=== PATIENT | male | born 1995 | race African-American/Black ===

== ENCOUNTER 2024-07-28 21:31 | Emergency (ER) | payer SELFPAY ==
[2024-07-28] MEDS ORDERED: Sodium Chloride 0.9% 1,000 ML IV SCH (23:45)
[2024-07-29] MEDS: Iopamidol 612 MG/ML 100 ML Bottle IVPUSH ONE (00:20)
[2024-07-29] MEDS: Dexamethasone 4 MG/ML SDV IVPUSH ONE (01:06)
== END 2024-07-29 01:14 | disposition home or self-care (01) ==
LOC: JD.ED 21:31
DX: R09.89 Other specified symptoms and signs involving the circulatory and respiratory systems (principal)
CPT/HCPCS: 70491; 82947; 96374; 99284; J1100; Q9967; 99283

== ENCOUNTER 2025-07-02 08:49 | Emergency (ER) | payer SELFPAY | END 2025-07-02 11:25 | disposition home or self-care (01) | LOC: JD.ED 08:49 | DX: T18.128A Food in esophagus causing other injury, initial encounter (principal); W44.F3XA Food entering into or through a natural orifice, initial encounter; Z79.899 Other long term (current) drug therapy | CPT/HCPCS: 99283 ==